=== PATIENT | male | born 1955 | race Caucasian/White ===

== ENCOUNTER 2017-12-17 21:55 | Observation (INO) ==
[2017-12-17] MEDS ORDERED: Nitroglycerin 0.4 MG TAB.SUBL SL ONE (22:12)
[2017-12-17] MEDS ORDERED: *HR* FentaNYL (PF) 100 MCG/2 ML VIAL IVP ONE (22:13)
--- NOTE | 2017-12-17 22:16 | Emergency Department Note ---
Disposition Clinical Impression: Chest pain Qualifiers: Chest pain type: precordial pain Qualified Code(s): R07.2 - Precordial pain Disposition: Admitted As Inpatient Condition: Good Referrals: Horacio Kennedy CNP [Primary Care Provider] - Forms: ED Satisfaction Letter Time of Disposition: 00:46 Chest Pain HPI - General Chief Complaint: ED Chest Pain Stated Complaint: chest pain Time Seen by Provider: 12/17/17 22:06 Source: patient, EMS Limitations: no limitations Vital Signs Reviewed: Yes Nursing Notes Reviewed: Yes - History of Present Illness HPI Narrative: This is a 62-year-old male with known coronary artery disease and a total of 3 angioplasties with a combined total of 7 stents, the last angioplasty August 2017 with 2 stents placed, who comes to the emergency department reporting chest pain that initially started 36 hours prior to arrival and lasted 2 hours, resolving with nitroglycerin. He states the pain came back 3-4 hours prior to arrival tonight and did not resolve after 3 baby aspirin and 3 nitroglycerin tablets. He describes the pain as pressure across his mid sternum, and states that there is radiation into his jaw. He denies shortness of breath or nausea. Severity scale (1-10): 8 - Related Data Home Medications Medication Instructions Recorded Confirmed Lisinopril [Zestril] 20 mg PO DAILY 02/27/16 04/21/16 Rivaroxaban [Xarelto] 10 mg PO DAILY 02/27/16 06/24/17 Albuterol Sulfate [Albuterol 0 puff IH Q4HR 06/24/17 06/24/17 Inhaler] Previous Rx's Medication Instructions Recorded Gabapentin [Neurontin] 200 mg PO TID #21 capsule 02/27/16 Cyclobenzaprine [Flexeril] 10 mg PO TID PRN #9 tablet 06/24/17 HYDROcodone/Acet 5/325 mg [[place] 1 tab PO Q6H PRN 4 Days #16 tab 06/24/17 5-325 mg] predniSONE [PredniSONE] 40 mg PO DAILY #10 tablet 06/24/17 Allergies Allergy/AdvReac Type Severity Reaction Status Date / Time ketorolac [From Toradol] Allergy Palpitation Verified 03/15/16 12:07 s tramadol Allergy Palpitation Verified 03/15/16 12:07 s All systems ED: reviewed and negative except as stated. Cardiovascular: Reports: chest pain, other Chest Pain PMH - Past Medical History Medical history: Reports: arthritis, coronary artery disease, hypertension, myocardial infarction, other Surgical history: Reports: angioplasty/stent, hip replacement Psychiatric history: Reports: no psych history - Social History Smoking Status: Current every day smoker Alcohol use: Reports: none Drug use: Reports: none Physical Exam - General Limitations: no limitations General appearance: alert, in no apparent distress - Head Head exam: atraumatic - Eye Eye exam: Present: normal appearance, PERRL, EOMI - Neck Neck exam: Present: normal inspection, full ROM, trachea midline - Chest Chest inspection: Present: normal inspection, symmetric chest wall rise - Respiratory Respiratory exam: Present: normal lung sounds bilaterally - Cardiovascular Cardiovascular exam: Present: regular rate, normal rhythm, normal heart sounds - Abdominal Exam Abdominal exam: Present: soft, Non-Tender. Absent: tenderness, distention, guarding, rebound, rigidity - Extremities Exam Extremities exam: Present: normal inspection, full ROM. Absent: tenderness, pedal edema - Neurological Exam Neurological exam: Present: alert, oriented X3 - Psychiatric Psychiatric exam: Present: normal affect, normal mood - Skin Skin exam: Present: warm, dry, intact, normal color Course Course Narrative: This is a 62-year-old male has symptoms concerning for acute coronary syndrome Vital Signs Temperature 98.2 F 12/17/17 21:58 Pulse Rate 60 12/17/17 21:58 Respiratory Rate 18 12/17/17 21:58 Blood Pressure 148/80 12/17/17 21:58 O2 Sat by Pulse Oximetry 99 12/17/17 21:58 Temperature 98.2 F 12/17/17 21:58 Pulse Rate 58 12/17/17 22:33 Respiratory Rate 14 12/17/17 22:33 Blood Pressure 131/74 12/17/17 22:33 O2 Sat by Pulse Oximetry 100 12/17/17 22:33 Oxygen Delivery Oxygen Delivery Room Air Chest Pain - MDM Narrative Medical decision making narrative: This is a 62-year-old male with a known history of coronary disease with more persistent chest pain. His initial EKG and troponin are unremarkable, and he appears appropriate for admission for chest pain rule out. I discussed his case with the on-call hospitalist, who accepted him for observation - Lab Data Lab results reviewed: Yes I reviewed the patient's lab results. Lab results narrative: CBC showed anemia at 12.4 and 37.1 BMP was unremarkable Troponin was low Result diagrams: 12/17/17 22:37 12/17/17 22:37 Lab Results 12/17/17 12/17/17 Range/Units 22:37 22:37 WBC 9.5 (4.3-11.1) K/mcL RBC 4.00 L (4.19-5.50) M/mcL Hgb 12.4 L (12.9-16.9) g/dL Hct 37.1 L (37.5-50.1) % MCV 92.8 (83.0-100.0) fL MCH 31.0 (28.0-33.3) pg MCHC 33.4 (31.6-35.5) g/dL RDW 13.2 (11.5-14.5) % Plt Count 208 (140-400) K/mcL MPV 11.0 (9.4-12.4) fL Immature Gran % 0.3 (0-4) % Seg Neutrophils % 61.6 % Lymphocytes % 26.1 % Monocytes % 8.4 % Eosinophils % 3.1 % Basophils % 0.5 % Neutrophils # 5.8 (1.6-8.9) K/mcL Lymphocytes # 2.5 (0.6-4.6) K/mcL Monocytes # 0.8 (0.0-1.3) K/mcL Eosinophils # 0.3 (0.0-0.6) K/mcL Basophils # 0.1 (0.0-0.2) K/mcL Sodium 137 (136-145) mEq/L Potassium 4.0 (3.5-5.1) mEq/L Chloride 106 (98-107) mEq/L Carbon Dioxide 25 (23-29) mEq/L BUN 9 (8-23) mg/dL Creatinine 0.71 (0.70-1.30) mg/dL Est GFR ( Amer) > 60 (> 60) Est GFR (Non-Af Amer) > 60 (> 60) BUN/Creatinine Ratio 13 (6-26) Glucose 84 (70-105) mg/dL Calculated Osmolality 282 (280-300) Calcium 8.8 (8.6-10.3) mg/dL Troponin I < 0.03 (< 0.04) ng/mL - EKG Data EKG attestation: Yes I reviewed and interpreted this EKG. EKG results narrative: EKG shows sinus bradycardia, 59 bpm, normal intervals, normal axis, normal ST and T waves
[2017-12-17 22:56] LABS: Basophils # 0.1 K/mcL (0.0-0.2); Basophils % 0.5 %; Eosinophils # 0.3 K/mcL (0.0-0.6); Eosinophils % 3.1 %; Hematocrit 37.1 % (37.5-50.1); Hemoglobin 12.4 g/dL (12.9-16.9); Immature Granulocytes % 0.3 % (0-4); Lymphocytes # 2.5 K/mcL (0.6-4.6); Lymphocytes % 26.1 %; Mean Corpuscular HGB Conc 33.4 g/dL (31.6-35.5); Mean Corpuscular Volume 92.8 fL (83.0-100.0); Monocytes # 0.8 K/mcL (0.0-1.3); Monocytes % 8.4 %; Neutrophils # 5.8 K/mcL (1.6-8.9); Platelet Count 208 K/mcL (140-400); Red Cell Distribution Width 13.2 % (11.5-14.5); Segmented Neutrophils % 61.6 %
[2017-12-17 23:18] LABS: BUN/Creatinine Ratio 13 (6-26); Blood Urea Nitrogen 9 mg/dL (8-23); Calcium 8.8 mg/dL (8.6-10.3); Carbon Dioxide 25 mEq/L (23-29); Chloride 106 mEq/L (98-107); Glucose 84 mg/dL (70-105); Osmolality,Calculated 282 (280-300); Sodium 137 mEq/L (136-145); eGFR For Non-African Americans > 60 (> 60)
[2017-12-17 23:19] LABS: Troponin I < 0.03 ng/mL (< 0.04)
[2017-12-18] MEDS ORDERED: Naloxone 0.4 MG/ML INJ IVP PRN (03:17)
[2017-12-18] MEDS ORDERED: Nitroglycerin 25 MG/250 ML INFUS..BTL IVC SCH (03:30)
--- NOTE | 2017-12-18 03:37 | Internal Med History&Physical ---
Date of Encounter: 12/18/17 Time of Encounter: 02:46 Internal Medicine - H&P: HPI Chief complaint: Chest pain Admitted From: Home Plans for Post Hospital Care: Home History of present illness: Mr. Lehman is a 62 year old male Patient was out with his friends when he started expressing chest pain and cold sweats. He took some nitroglycerin which he always carries with him, and his pain improved but did not fully go away. He went to bed and when he woke up his pain was not any worse but as the day progressed his pain increased. He attempted nitroglycerin 4 times but it did not go away at that point. Eventually his friend convinced him to go the emergency room for further evaluation. He describes the pain as centrally located with radiation to his right arm and into his jaw, dull in quality and like his previous episodes of chest pain. He has a history of 7 stents, most recently in August of this year. He denies nausea, vomiting, diarrhea, constipation, abdominal pain and changes in vision. In the emergency room chest x-ray showed no acute cardiopulmonary abnormalities , EKG was unremarkable. Troponins were not elevated and the CBC and BMP were within normal limits. He was admitted for continued monitoring and chest pain rule out. Upon my assessment patient states he is still having some chest pain, but also would like pain meds for his chronic pain that he has due to his arthritis. He was agreeable to starting a nitro drip for his chest pain. Patient declined nicotine patch. He is a pack per day smoker. Past Med Surg Social Fam HX - Past Medical History Medical history: arthritis, coronary artery disease, hypertension, myocardial infarction, other Additional medical history: [address] Psychiatric history: no psych history - Past Surgical History Surgical History: angioplasty/stent, hip replacement - Social History Smoking Status: Current every day smoker Packs per day: 1 Smokeless Tobacco Status: No Alcohol use: none Drug use: none - Family History Father Hx Family Cardiac Disorders: Yes (ID) Internal Medicine - H&P: Meds Amlodipine Besylate [Amlodipine Besylate] 5 mg PO DAILY 12/18/17 [History] Aspirin Enteric Coated [Aspirin EC] 81 mg PO DAILY 12/18/17 [History] Atorvastatin [Lipitor] 20 mg PO HS 12/18/17 [History] Gabapentin [Neurontin] 800 mg PO TID 12/18/17 [History] HYDROcodone/Acet 10/325 mg [[place] 10-325 mg] 1 tab Q4H PRN 12/18/17 [History] Isosorbide MONOnitrate [Isosorbide Mononitrate ER] 30 mg PO Q12H 12/18/17 [ History] Lisinopril [Zestril] 20 mg PO DAILY 12/18/17 [History] Nitroglycerin [Nitrostat] 0.4 mg SL Q5MIN PRN 12/18/17 [History] Ticagrelor [Brilinta] 90 mg PO BID 12/18/17 [History] 3 Allergy/AdvReac Type Severity Reaction Status Date / Time ketorolac [From Toradol] Allergy Palpitation Verified 12/18/17 02:52 s tramadol Allergy Palpitation Verified 12/18/17 02:52 s All Systems PM: A 10-system review of systems was performed and is negative for pertinent findings except as documented above in the HPI. - Constitutional Vitals: Temp Pulse Resp BP Pulse Ox 97.8 F 58 17 146/69 98 12/18/17 01:37 12/18/17 01:37 12/18/17 01:37 12/18/17 01:37 12/18/17 01:37 General appearance: Present: cooperative, mild distress, A&O X 3, pleasant, answers questions appropriately - Head Head exam: Present: normal inspection - Eye Eye exam: Present: EOMI, normal appearance - Neck Neck exam general surgery: Present: full ROM - Respiratory Respiratory exam: Present: CTAB. Absent: respiratory distress, wheezes - Cardiovascular Cardiovascular exam: Present: RRR. Absent: diastolic murmur, systolic murmur - GI/Abdominal GI/Abdominal exam: Present: normal bowel sounds, soft. Absent: tenderness - Extremities Exam Extremities exam: Present: warm, radial pulses palpable and symmetrical. Absent : calf tenderness, pedal edema, tenderness - Neurological Exam Neurological exam: Present: no focal deficits, strengths equal and symetr throughout. Absent: motor sensory deficit, facial droop, speech deficit - Skin Skin exam: Present: dry, normal color, warm Internal Med - H&P Results - Labs CBC & Chem 7: 12/17/17 22:37 12/17/17 22:37 - Assessment and plan (1) Chest pain Current Visit: Yes Status: Acute Assessment and plan: Patient still experiencing some chest pain, despite sublingual nitrogen. Troponins negative in the emergency room, and EKG was unremarkable. Chest x- ray also was negative for acute abnormalities. He has a significant history of 7 cardiac stents. Continue to trend troponins quality assurance monitor final Nitro drip Cardiology consult in the morning Nothing by mouth at midnight for possible procedures pending decision from cardiology Qualifiers: Chest pain type: unspecified Qualified Code(s): R07.9 - Chest pain, unspecified (2) Chronic pain Current Visit: Yes Status: Acute Assessment and plan: Patient has history of arthritis, and takes [place] at home. Will provide sublingual oxycodone as needed. Qualifiers: Qualified Code(s): G89.29 - Other chronic pain (3) Nicotine abuse Current Visit: Yes Status: Acute Assessment and plan: Patient declined nicotine patch (4) History of heart artery stent Current Visit: Yes Status: Acute Assessment and plan: Patient has had 7 stents in the past, records not available at this facility. Cardiology consult in the morning Continue to monitor chest pain, treatment as above (5) DVT prophylaxis Current Visit: Yes Status: Acute Assessment and plan: Patient has no history of clots either DVT nor PE. Heparin subcutaneous. - Time Spent With Patient Total time spent is greater than 50% in coordination of care (as documented) at patient's floor/unit and/or counseling patient: Greater than 35 minutes
[2017-12-18] MEDS ORDERED: 0.9 % Sodium Chloride 1,000 ML ONE (03:55)
[2017-12-18] MEDS: OXYCODONE Oral CONC 10 MG/0.5 ML ORAL.SYG SL PRN ×3 (04:05→13:24)
[2017-12-18 05:24] LABS: Hematocrit 35.4 % (37.5-50.1); Hemoglobin 11.7 g/dL (12.9-16.9); Mean Corpuscular HGB Conc 33.1 g/dL (31.6-35.5); Mean Corpuscular Volume 90.8 fL (83.0-100.0); Mean Platelet Volume 11.2 fL (9.4-12.4); Platelet Count 208 K/mcL (140-400); Red Cell Distribution Width 13.3 % (11.5-14.5)
[2017-12-18 05:48] LABS: BUN/Creatinine Ratio 14 (6-26); Blood Urea Nitrogen 10 mg/dL (8-23); Calcium 8.8 mg/dL (8.6-10.3); Carbon Dioxide 27 mEq/L (23-29); Chloride 107 mEq/L (98-107); Glucose 98 mg/dL (70-105); Osmolality,Calculated 285 (280-300); Potassium 3.7 mEq/L (3.5-5.1); Sodium 138 mEq/L (136-145); eGFR For Non-African Americans > 60 (> 60)
[2017-12-18] MEDS ORDERED: *HR* Heparin 5,000 UNIT/ML VIAL SQ SCH (06:00)
[2017-12-18] MEDS ORDERED: Aspirin Enteric Coated 81 MG Tablet PO SCH (09:00)
[2017-12-18] MEDS ORDERED: amLODIPine 5 MG TABLET PO SCH (09:00)
[2017-12-18] MEDS ORDERED: *HR* Ticagrelor 90 MG TABLET PO SCH (09:00)
[2017-12-18] MEDS ORDERED: Ibuprofen 400 MG TABLET PO ONE (10:59)
--- NOTE | 2017-12-18 13:56 | Internal Med Progress Note ---
Hospitalist Progress Note - Encounter Date of Encounter: 12/18/17 Time of Encounter: 09:45 - Subjective Interval History: Pt was seen and assessed at bedside at 0945. He states that he is still having chest pain. 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 He states that his last LHC and stent placement was in August. He is unsure of when his last stress test was. He has declined nitro SL, nitro paste, he is allergic to Toradol and Tramadol and he declined lidoderm patch and Ibuprofen. He denies any other complaint other than chest pain. - Exam Vitals: Temp Pulse Resp BP Pulse Ox 97.8 F 65 16 123/72 98 12/18/17 11:10 12/18/17 11:10 12/18/17 11:10 12/18/17 11:10 12/18/17 11:10 Exam: General: Pt resting quietly on bed, no distress. Skin: pwd, no rashes, lesions, redness Neurological: Pt is alert and awake, oriented x 3, Speech is clear, PERRLA, EOMI , no nystagmus, no pronator drift. strength equal x 4 extremities HEENT: mucous mumbranes moist, no conjuctival pallor Neck: supple, no tracheal deviation, no lymphadenopathy, tenderness, no thyromegaly Heart: S1S2 heard without gallops, clicks, murmurs, no bradycardia or tachycardia, pt has no peripheral edema, pedal and radial pulses palpable bilaterally. Right anterior chest wall tender with palpation in re-creates chest pain. Lungs: clear throughout without wheezing, rales, or ronchi, respirations are unlabored Abdomen: soft and non tender with bowel sound present, no hepatomegaly. Psych: Normal affect with good eye contact - Assessment and Plan (1) Chest pain Current Visit: Yes Status: Acute Assessment and Plan: Pt continues to have chest heaviness that is diffuse to upper chest. Pain is reproducible to palpation to right chest. Pt has declined NTG sl and topical, pt became hypotensive on gtt. Pt has declined ibuprofen and lidoderm patch for chest wall pain. Pt is allergic to ketorolac and tramadol, both of which were offered. Suspect there are some drug-seeking behavior in regards to pain control. Patient reports that oxycodone was healing has helped his chest pain, as well as he made some misleading statements about getting [place] 10/325 mg for his arthritis pain. Troponins have been negative, EKG is negative for ischemic changes, chest x-ray is negative for any acute processes. She reports that he has had LHC with 7 stents, all of it is done at [facility]. We are attempting to obtain records. Patient reports that he was admitted at [facility] 2 weeks ago for same and that nothing was done. Continue telemetry Aspirin and nitroglycerin for chest pain Will consider stress test tomorrow if pt has not had one recently, consider cardiology consult prn based on testing or pt condition. Monitor labs and vitals. (2) Chronic pain Current Visit: Yes Status: Chronic Assessment and Plan: Pt reports chronic pain throughout body from arthritis. Pt states that he gets [place] 10/325 for pain, [place] report does not reflect this. Pt appears to get GAbatpentin regularly, will continue. I have discontinued his Oxycodone due to suspected drug seeking behavior. Pt has Tylenol for pain, continue PRN (3) DVT prophylaxis Current Visit: Yes Status: Acute Assessment and Plan: Heparin SQ BID (4) History of heart artery stent Current Visit: Yes Status: Acute Assessment and Plan: Pt reports that he has 7 stents, all cardiology/LHC at [facility]. We have been attempting to obtain records most of the day. (5) Nicotine abuse Current Visit: Yes Status: Acute Assessment and Plan: Pt smokes approximated 2=3 PPD, states that he is not ready to stop smoking Denies need for nicotine replacement. (6) Drug-seeking behavior Current Visit: Yes Status: Suspected Assessment and Plan: Suspected. Pt states that he doesn't want to take NTG, states that he is allergic to Tramadol and Toradol. HE states that he gets [place] 10/325 for pain, [place] report does not reflect this. Pt has multiple providers who have written him prescriptions. Pt only appears to get Gabapentin regularly. Pt also declined Ibuprofen and Lidoderm patch after chest pain was reproducible. - Time Spent with Patient Total time spent is greater than 50% in coordination of care (as documented) at patient's floor/unit and/or counseling patient: less than 15 minutes Plan of Care Discussed with: patient Internal Medicine: Result - Labs CBC & Chem 7: 12/18/17 04:43 12/18/17 04:43 Labs: Short CBC 12/18/17 Range/Units 04:43 WBC 9.2 (4.3-11.1) K/mcL Hgb 11.7 L (12.9-16.9) g/dL Hct 35.4 L (37.5-50.1) % Plt Count 208 (140-400) K/mcL BMP 12/18/17 04:43 Sodium 138 Potassium 3.7 Chloride 107 Carbon Dioxide 27 BUN 10 Creatinine 0.71 Glucose 98 Calcium 8.8 Cardiac Enzymes 12/18/17 12/18/17 Range/Units 04:43 10:24 Troponin I < 0.03 < 0.03 (< 0.04) ng/mL Consult Discharge Plan - Plan Referrals: Horacio Kennedy, BRIAN [Primary Care Provider] - (1) Chest pain Qualifiers: Chest pain type: unspecified Qualified Code(s): R07.9 - Chest pain, unspecified (2) Chronic pain Qualifiers: Chronic pain type: chronic pain syndrome Qualified Code(s): G89.4 - Chronic pain syndrome
[2017-12-18] MEDS ORDERED: Acetaminophen 325 MG TABLET PO PRN (14:09)
[2017-12-18] MEDS ORDERED: Nitroglycerin 0.4 MG TAB.SUBL SL PRN (14:10)
[2017-12-18] MEDS ORDERED: Isosorbide MONOnitrate (24 HR) 30 MG TAB.ER.24H PO SCH (14:15)
[2017-12-18] MEDS ORDERED: Gabapentin 400 MG CAPSULE PO SCH (15:00)
[2017-12-18 15:38] VITALS: BP 128/76
[2017-12-18] MEDS ORDERED: Isovue-370 500 ML INFUS..BTL IV ONE (16:31)
--- NOTE | 2017-12-18 17:22 | Electrocardiograph Report ---
[address] [place], [place] [address] Test Date: 2017-12-17 Pat Name: Wayne Lehman Department: Room: 3B Gender: M Nutrition Aide: : 1955 Requested By: Steven Suazo Order Number: [id number] Reading MD: Gladis Ferrell Measurements Intervals [place] Rate: 59 P: 78 ME: 121 QRS: 64 QRSD: 78 T: 72 QT: 440 QTc: 436 Interpretive Statements Sinus rhythm Nonspecific ST findings Electronically Signed On 12-18-2017 17:20:25 EDT by Gladis Ferrell
--- NOTE | 2017-12-18 17:33 | Discharge Summary ---
Orders not resulted at time of discharge: Pending orders 12/18/17 16:31 CTA chest [CT angio chest] [CT] Routine Date of Encounter: 12/18/17 Time of Encounter: 09:45 - Discharge Diagnosis (1) Chest pain Priority: Primary Status: Acute Assessment and Plan: Pt continues to have chest heaviness that is diffuse to upper chest. Pain is reproducible to palpation to right chest. Pt has declined NTG sl and topical, pt became hypotensive on gtt. Pt has declined ibuprofen and lidoderm patch for chest wall pain. Pt is allergic to ketorolac and tramadol, both of which were offered. Suspect there are some drug-seeking behavior in regards to pain control. Patient reports that oxycodone was healing has helped his chest pain, as well as he made some misleading statements about getting [place] 10/325 mg for his arthritis pain. Troponins have been negative, EKG is negative for ischemic changes, chest x-ray is negative for any acute processes. She reports that he has had C with 7 stents, all of it is done at [facility]. We are attempting to obtain records. Patient reports that he was admitted at [facility] 2 weeks ago for same and that nothing was done. Pt states today that he has not had Brilinta for 7 days, states that when he was discharged from [facility] 1 week ago, he split up with his and she won't give him his Brilinta. CTA chest was ordered, however, pt signed out AMA prior to it being completed. Continue telemetry Aspirin and nitroglycerin for chest pain Will consider stress test tomorrow if pt has not had one recently, consider cardiology consult prn based on testing or pt condition. Monitor labs and vitals. CTA chest done to evaluate for PE Qualifiers: Chest pain type: unspecified Qualified Code(s): R07.9 - Chest pain, unspecified (2) Chronic pain Priority: Secondary Status: Chronic Assessment and Plan: Pt reports chronic pain throughout body from arthritis. Pt states that he gets [place] 10/325 for pain, OARRS report does not reflect this. Pt appears to get GAbatpentin regularly, will continue. I have discontinued his Oxycodone due to suspected drug seeking behavior. Pt has Tylenol for pain, continue PRN Qualifiers: Chronic pain type: chronic pain syndrome Qualified Code(s): G89.4 - Chronic pain syndrome (3) DVT prophylaxis Priority: Secondary Status: Acute Assessment and Plan: Heparin SQ BID (4) History of heart artery stent Priority: Secondary Status: Acute Assessment and Plan: Pt reports that he has 7 stents, all cardiology/LHC at [facility]. [facility] records: Pt had positive stress test on 10/22/2017. Pt had LHC on 10/23/17, showed severe single vessel CAD, less than 10% in-stent restenosis in in proximal to mid second obtuse marginal, less than 10% in-stent restenosis in proximal second obtuse marginal, less than 10% in-stent restenosis of the proximal left circumflex artery. 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 At that time they opted for aggressive risk factor modification of tobacco abuse and optimal medical therapy of patient's disease. Pt was unable to have stress today due to continued chest pain. He refused/ declined all pain medication that was offered, he declined/refused NTG. CTA was ordered to evaluate for PE. Pt signed out AMA and states that he is going to [facility] for treatment. (5) Nicotine abuse Priority: Secondary Status: Chronic Assessment and Plan: Pt smokes approximated 2=3 PPD, states that he is not ready to stop smoking Denies need for nicotine replacement. (6) Drug-seeking behavior Priority: Secondary Status: Suspected Assessment and Plan: Suspected. Pt states that he doesn't want to take NTG, states that he is allergic to Tramadol and Toradol. HE states that he gets [place] 10/325 for pain, OARRS report does not reflect this. Pt has multiple providers who have written him prescriptions. Pt only appears to get Gabapentin regularly. Pt also declined Ibuprofen and Lidoderm patch after chest pain was reproducible. Prior to pt signing out AMA, pt had me come back to unit to talk to him, he requested [place] 10/325 and states that he gets them at home. I told him that OARRS report does not reflect that and that I would be restarting his Gabapentin only. He states that he can't sit here in pain all night and I reminded him that he had been offered seval pain medications, all of which he declined. Pt signed out AMA and states that he is going to [facility]. Hospital course: Mr. Lehman is a 62 year old male - Time Spent with Patient Total time spent providing and/or coordinating discharge services: - Discharge Medications Home Medications: Amlodipine Besylate 5 mg PO DAILY 12/18/17 [History] Aspirin Enteric Coated [Aspirin EC] 81 mg PO DAILY 12/18/17 [History] Atorvastatin [Lipitor] 20 mg PO HS 12/18/17 [History] Gabapentin [Neurontin] 800 mg PO TID 12/18/17 [History] HYDROcodone/Acet 10/325 mg [[place] 10-325 mg] 1 tab Q4H PRN 12/18/17 [History] Isosorbide MONOnitrate [Isosorbide Mononitrate ER] 30 mg PO Q12H 12/18/17 [ History] Lisinopril [Zestril] 20 mg PO DAILY 12/18/17 [History] Nitroglycerin [Nitrostat] 0.4 mg SL Q5MIN PRN 12/18/17 [History] Ticagrelor [Brilinta] 90 mg PO BID 12/18/17 [History] Allergies/Adverse Reactions: 3 Allergy/AdvReac Type Severity Reaction Status Date / Time ketorolac [From Toradol] Allergy Palpitation Verified 12/18/17 02:52 s tramadol Allergy Palpitation Verified 12/18/17 02:52 s Date of admission: 12/18/17 00:58 Primary care physician: Horacio Kennedy CNP Discharging clinician: Radha Almonte Anticipated date of discharge: 12/18/17 - Constitutional Vitals: Temp Pulse Resp BP Pulse Ox 97.4 F L 56 16 128/76 96 12/18/17 15:37 12/18/17 15:37 12/18/17 15:37 12/18/17 15:37 12/18/17 15:37 General appearance: Present: cooperative, mild distress, A&O X 3, pleasant, answers questions appropriately - Head Head exam: Present: atraumatic, normal inspection, normocephalic - Eye Eye exam: Present: EOMI, normal appearance, conjuntiva pink, sclera anicteric. Absent: nystagmus - Neck Neck exam general surgery: Present: supple, trachea midline. Absent: lymphadenopathy - Respiratory Respiratory exam: Present: chest wall tenderness, CTAB, respiratory distress. Absent: accessory muscle use, decreased breath sounds, rales, rhonchi, wheezes - Cardiovascular Cardiovascular exam: Present: RRR, +S1, +S2. Absent: diastolic murmur, gallop, rubs, systolic murmur - GI/Abdominal GI/Abdominal exam: Present: normal bowel sounds, soft. Absent: distended, hepatomegaly, tenderness - Extremities Exam Extremities exam: Present: normal capillary refill, normal inspection, warm, radial pulses palpable and symmetrical. Absent: calf tenderness, cyanotic, pedal edema, tenderness - Neurological Exam Neurological exam: Present: alert, oriented X3, no focal deficits. Absent: facial droop, speech deficit - Skin Skin exam: Present: dry, intact, normal color, warm. Absent: rash - Patient Status Disposition: Left Against Medical Advice Condition: Fair - Discharge Instructions Follow Up With: Horacio Kennedy CNP [Primary Care Provider] -
[2017-12-19] MEDS ORDERED: Lisinopril 20 MG TABLET PO SCH (09:00)
== END 2017-12-18 16:15 | disposition left against medical advice (07) ==
LOC: 3BNU 21:55 → EMEROOARM 21:55 → 3BNU 12-18 01:37
PROVIDERS: ADMIT Family Medicine; ATTEND Family Medicine

== ENCOUNTER 2019-10-29 17:18 | Inpatient (IN) ==
[2019-10-29 18:00] LABS: Basophils % 0.4 %; Eosinophils # 0.4 K/mcL (0.0-0.6); Eosinophils % 3.2 %; Hemoglobin 13.1 g/dL (12.9-16.9); Immature Granulocytes % 0.4 % (0-4); Lymphocytes # 1.9 K/mcL (0.6-4.6); Mean Corpuscular Hemoglobin 30.1 pg (28.0-33.3); Mean Corpuscular Volume 94.3 fL (83.0-100.0); Mean Platelet Volume 11.5 fL (9.4-12.4); Monocytes # 0.7 K/mcL (0.0-1.3); Monocytes % 6.4 %; Neutrophils # 8.3 K/mcL (1.6-8.9); Platelet Count 238 K/mcL (140-400); Red Blood Count 4.35 M/mcL (4.19-5.50); Red Cell Distribution Width 12.4 % (11.5-14.5); Segmented Neutrophils % 72.6 %; White Blood Count 11.4 K/mcL (4.3-11.1)
[2019-10-29 18:03] LABS: Prothrombin Time 11.1 Seconds (9.4-12.1)
[2019-10-29 18:05] LABS: Activated Partial Thrombo Time 29.4 Seconds (26.0-36.0)
[2019-10-29] MEDS: Nitroglycerin 0.4 MG TAB.SUBL SL SCH ×2 (18:10→18:11)
[2019-10-29] MEDS ORDERED: *HR* HYDROmorphone (PF) 1 MG/ML SYRINGE IVP ONE (18:11)
[2019-10-29 18:14] LABS: BUN/Creatinine Ratio 18 (6-26); Blood Urea Nitrogen 17 mg/dL (8-23); Carbon Dioxide 26 mEq/L (23-29); Chloride 104 mEq/L (98-107); Glucose 104 mg/dL (70-105); Osmolality,Calculated 284 (280-300); Sodium 136 mEq/L (136-145); Troponin I < 0.03 ng/mL (< 0.04); eGFR For African Americans > 60 (> 60); eGFR For Non-African Americans > 60 (> 60)
[2019-10-29] MEDS ORDERED: Naloxone 0.4 MG/ML INJ IVP PRN (19:41)
[2019-10-29] MEDS ORDERED: *HR* OxyCODONE Immed Rel 5 MG TABLET PO PRN (20:24)
[2019-10-29] MEDS ORDERED: Nitroglycerin 0.4 MG TAB.SUBL SL PRN (20:24)
[2019-10-29] MEDS: Gabapentin 400 MG CAPSULE PO SCH (21:43)
[2019-10-29] MEDS: TICAGRELOR PO SCH (21:46)
[2019-10-29] MEDS: *HR* Heparin 5,000 UNIT/ML VIAL SQ SCH (21:47)
[2019-10-29] MEDS ORDERED: *HR* LORazepam 2 MG/ML VIAL IVP ONE (23:00)
[2019-10-30] MEDS: *HR* Heparin 5,000 UNIT/ML VIAL SQ SCH ×3 (05:18→21:08)
[2019-10-30] MEDS: *HR* OxyCODONE Immed Rel 5 MG TABLET PO PRN ×5 (06:58→22:52)
[2019-10-30 07:28] LABS: Basophils % 0.5 %; Eosinophils # 0.6 K/mcL (0.0-0.6); Eosinophils % 7.8 %; Hematocrit 39.2 % (37.5-50.1); Hemoglobin 12.9 g/dL (12.9-16.9); Immature Granulocytes % 0.3 % (0-4); Lymphocytes % 26.6 %; Mean Corpuscular HGB Conc 32.9 g/dL (31.6-35.5); Mean Corpuscular Hemoglobin 31.4 pg (28.0-33.3); Mean Corpuscular Volume 95.4 fL (83.0-100.0); Mean Platelet Volume 11.7 fL (9.4-12.4); Monocytes # 0.8 K/mcL (0.0-1.3); Monocytes % 10.2 %; Platelet Count 215 K/mcL (140-400); Red Blood Count 4.11 M/mcL (4.19-5.50); Red Cell Distribution Width 12.5 % (11.5-14.5); Segmented Neutrophils % 54.6 %; White Blood Count 7.3 K/mcL (4.3-11.1)
[2019-10-30 08:51] LABS: BUN/Creatinine Ratio 18 (6-26); Blood Urea Nitrogen 16 mg/dL (8-23); Carbon Dioxide 24 mEq/L (23-29); Chloride 109 mEq/L (98-107); Glucose 94 mg/dL (70-105); Osmolality,Calculated 293 (280-300); Potassium 3.8 mEq/L (3.5-5.1); Sodium 141 mEq/L (136-145); eGFR For African Americans > 60 (> 60); eGFR For Non-African Americans > 60 (> 60)
[2019-10-30 09:49] LABS: Chol/HDL Ratio 4.8 (0-4.9); Cholesterol 172 mg/dL (< 200); HDL Cholesterol 36 mg/dL (40-59); LDL Cholesterol,Calculated 117 mg/dL (< 100); Triglycerides 96 mg/dL (< 150); Troponin I < 0.03 ng/mL (< 0.04)
[2019-10-30] MEDS: lisinopriL 20 MG TABLET PO SCH (10:59)
[2019-10-30] MEDS: FLUoxetine 20 MG CAPSULE PO SCH (10:59)
[2019-10-30] MEDS: hydroCHLOROthiazide 25 MG TABLET PO SCH (10:59)
[2019-10-30] MEDS: Gabapentin 400 MG CAPSULE PO SCH ×3 (10:59→19:16)
[2019-10-30] MEDS: Aspirin Enteric Coated 81 MG Tablet PO SCH (10:59)
[2019-10-30] MEDS: *HR* Ticagrelor 90 MG TABLET PO SCH ×2 (11:03→19:15)
[2019-10-30 11:54] LABS: Estimated Average Glucose 128 mg/dl
[2019-10-30] MEDS ORDERED: *HR* LORazepam 0.5 MG TABLET PO PRN (20:20)
[2019-10-31] MEDS: *HR* OxyCODONE Immed Rel 5 MG TABLET PO PRN ×3 (02:52→11:56)
[2019-10-31] MEDS ORDERED: Regadenoson 0.4 MG/5 ML SYRINGE IVP ONE (06:19)
[2019-10-31 06:43] VITALS: BP 127/67
[2019-10-31] MEDS: *HR* Heparin 5,000 UNIT/ML VIAL SQ SCH (07:15)
[2019-10-31] MEDS: TICAGRELOR PO SCH (07:17)
[2019-10-31] MEDS: Aspirin Enteric Coated 81 MG Tablet PO SCH (07:33)
[2019-10-31] MEDS: *HR* Ticagrelor 90 MG TABLET PO SCH (07:33)
[2019-10-31] MEDS: Gabapentin 400 MG CAPSULE PO SCH (07:33)
[2019-10-31] MEDS: hydroCHLOROthiazide 25 MG TABLET PO SCH (07:33)
[2019-10-31] MEDS: FLUoxetine 20 MG CAPSULE PO SCH (07:33)
[2019-10-31] MEDS: lisinopriL 20 MG TABLET PO SCH (07:33)
[2019-10-31] MEDS ORDERED: Isosorbide MONOnitrate (24 HR) 30 MG TAB.ER.24H PO SCH (13:15)
== END 2019-10-31 14:08 | disposition home or self-care (01) | DRG 313 ==
LOC: EMEROOARM 17:18 → 3BNU 17:18 → SUATTDRO 20:02 → 3BNU 20:33 → SUATTDRO 10-30 11:33
PROVIDERS: ADMIT Family Medicine; ATTEND Student in an Organized Health Care Education/Training Program

== ENCOUNTER 2020-09-05 21:19 | Observation (INO) ==
[2020-09-05 22:32] LABS: Basophils # 0.1 K/mcL (0.0-0.2); Basophils % 0.7 %; Eosinophils # 0.5 K/mcL (0.0-0.6); Eosinophils % 6.9 %; Hematocrit 33.4 % (37.5-50.1); Hemoglobin 10.5 g/dL (12.9-16.9); Immature Granulocytes % 0.3 % (0-4); Lymphocytes # 2.4 K/mcL (0.6-4.6); Lymphocytes % 31.9 %; Mean Corpuscular HGB Conc 31.4 g/dL (31.6-35.5); Mean Corpuscular Hemoglobin 26.3 pg (28.0-33.3); Mean Corpuscular Volume 83.5 fL (83.0-100.0); Mean Platelet Volume 10.4 fL (9.4-12.4); Monocytes # 0.8 K/mcL (0.0-1.3); Monocytes % 11.3 %; Neutrophils # 3.7 K/mcL (1.6-8.9); Platelet Count 208 K/mcL (140-400); Red Cell Distribution Width 16.2 % (11.5-14.5); Segmented Neutrophils % 48.9 %; White Blood Count 7.4 K/mcL (4.3-11.1)
[2020-09-05 22:46] LABS: Acetaminophen < 10 mcg/mL (10-20); Alanine Aminotransferase 13 Units/L (7-52); Albumin 3.7 g/dL (3.5-5.7); Albumin/Globulin Ratio 1.6 (1.1-2.2); Alkaline Phosphatase 101 Units/L (34-104); Aspartate Amino Transferase 18 Units/L (13-39); BUN/Creatinine Ratio 9 (6-26); Bilirubin,Direct 0.1 mg/dL (0.0-0.2); Bilirubin,Indirect 0.3 mg/dL (0.0-1.0); Bilirubin,Total 0.4 mg/dL (0.3-1.0); Blood Urea Nitrogen 12 mg/dL (8-23); Calcium 8.3 mg/dL (8.6-10.3); Carbon Dioxide 27 mEq/L (23-29); Chloride 107 mEq/L (98-107); Creatine Kinase 143 Units/L (30-223); Ethanol < 10 mg/dL (Less than 10); Globulin 2.3 g/dL (2.4-3.5); Glucose 78 mg/dL (70-105); Lipase 29 Units/L (11-82); Osmolality,Calculated 289 (280-300); Potassium 3.3 mEq/L (3.5-5.1); Salicylate < 2.5 mg/dL (15.0-30.0); Sodium 140 mEq/L (136-145); Troponin I < 0.03 ng/mL (< 0.04); eGFR For African Americans > 60 (> 60); eGFR For Non-African Americans 56 (> 60)
[2020-09-05 22:57] LABS: INR 1.1; Prothrombin Time 12.6 Seconds (9.4-12.1)
[2020-09-05 22:59] LABS: Activated Partial Thrombo Time 26.2 Seconds (26.0-36.0)
[2020-09-05 23:30] LABS: Bilirubin,Urine Negative (Negative); Blood,Urine Negative (Negative); Clarity,Urine Clear (Clear); Color,Urine Colorless (Yellow); Glucose,Urine (UA) Normal (Normal); Ketones,Urine Negative (Negative); Leukocyte Esterase,Urine Negative (Negative); Nitrite,Urine Negative (Negative); Protein,Urine Negative (Neg-Trace); Specific Gravity,Urine 1.007 (1.010-1.025); Urobilinogen,Urine Normal (Normal)
[2020-09-05 23:41] LABS: Amphetamine Screen,Urine Positive ng/mL (Cutoff=1000); Barbiturate Screen,Urine Negative ng/mL (Cutoff=200); Benzodiazepines Screen,Urine Positive ng/mL (Cutoff=200); Cannabinoid Screen,Urine Negative ng/mL (Cutoff = 50); Cocaine Screen,Urine Negative ng/mL (Cutoff= 300); Opiate Screen,Urine Negative ng/mL (Cutoff=300); Phencyclidine Screen,Urine Negative ng/mL (Cutoff=25)
[2020-09-06] MEDS ORDERED: Naloxone 0.4 MG/ML INJ IVP PRN (01:25)
[2020-09-06] MEDS ORDERED: Melatonin 3 MG TABLET PO PRN (01:25)
[2020-09-06] MEDS ORDERED: Ondansetron 4 MG/2 ML VIAL IVP PRN (01:25)
[2020-09-06] MEDS ORDERED: Potassium Chloride 40 MEQ, Lidocaine 1% 2 ML in 0.9 % Sodium Chloride 500 ML IVPB ONE (01:45)
[2020-09-06 04:34] LABS: Basophils % 0.5 %; Eosinophils # 0.7 K/mcL (0.0-0.6); Eosinophils % 9.4 %; Hematocrit 35.3 % (37.5-50.1); Hemoglobin 11.1 g/dL (12.9-16.9); Immature Granulocytes % 0.3 % (0-4); Lymphocytes # 2.4 K/mcL (0.6-4.6); Mean Corpuscular HGB Conc 31.4 g/dL (31.6-35.5); Mean Corpuscular Hemoglobin 26.4 pg (28.0-33.3); Mean Corpuscular Volume 83.8 fL (83.0-100.0); Mean Platelet Volume 10.9 fL (9.4-12.4); Monocytes # 0.8 K/mcL (0.0-1.3); Monocytes % 10.4 %; Neutrophils # 3.6 K/mcL (1.6-8.9); Platelet Count 215 K/mcL (140-400); Red Blood Count 4.21 M/mcL (4.19-5.50); Red Cell Distribution Width 16.2 % (11.5-14.5); Segmented Neutrophils % 47.4 %; White Blood Count 7.5 K/mcL (4.3-11.1)
[2020-09-06 04:42] LABS: Prothrombin Time 11.8 Seconds (9.4-12.1)
[2020-09-06 04:57] LABS: Alanine Aminotransferase 13 Units/L (7-52); Albumin 3.5 g/dL (3.5-5.7); Albumin/Globulin Ratio 1.7 (1.1-2.2); Alkaline Phosphatase 91 Units/L (34-104); Aspartate Amino Transferase 17 Units/L (13-39); BUN/Creatinine Ratio 13 (6-26); Bilirubin,Total 0.3 mg/dL (0.3-1.0); Blood Urea Nitrogen 14 mg/dL (8-23); Calcium 8.4 mg/dL (8.6-10.3); Carbon Dioxide 25 mEq/L (23-29); Chloride 110 mEq/L (98-107); Globulin 2.1 g/dL (2.4-3.5); Glucose 95 mg/dL (70-105); Osmolality,Calculated 292 (280-300); Phosphorous 3.4 mg/dL (2.7-4.5); Potassium 3.9 mEq/L (3.5-5.1); Sodium 141 mEq/L (136-145); Total Protein 5.6 g/dL (6.4-8.9); Troponin I < 0.03 ng/mL (< 0.04); eGFR For African Americans > 60 (> 60); eGFR For Non-African Americans > 60 (> 60)
[2020-09-06] MEDS ORDERED: *HR* Heparin 5,000 UNIT/ML VIAL SQ SCH (06:00)
[2020-09-06] MEDS ORDERED: Regadenoson 0.4 MG/5 ML SYRINGE IVP ONE (06:34)
[2020-09-06 07:55] VITALS: BP 164/83
[2020-09-06] MEDS ORDERED: Aspirin 81 MG TAB.CHEW PO SCH (09:00)
== END 2020-09-06 11:33 | disposition home or self-care (01) ==
LOC: 3ANU 21:19 → EMEROOARM 21:19 → 3ANU 09-06 01:12
PROVIDERS: ADMIT Family Medicine; ATTEND Family Medicine